=== PATIENT | male | born 1940 | race Caucasian/White ===

== ENCOUNTER 2017-09-17 07:22 | Day surgery (SDC) | payer MEDICARE ==
[~2017-09-17] VITALS: Ht 172.7 cm; Wt 72.4 kg
[~2017-09-17 07:22] MED LIST: HEPARIN 1,000 UNITS/ML, 10ML ONE
[2017-09-17 08:16] VITALS: BP 203/106
[2017-09-17] MEDS ORDERED: SODIUM CHLORIDE 0.9% 1,000 ML IV SCH (08:34)
[2017-09-17 08:50] LABS: BASOPHILS # (AUTO) 0.06 x10^3/uL (0-0.1); BASOPHILS % (AUTO) 1 % (0-1); EOSINOPHILS # (AUTO) 0.29 x10^3/uL (0-0.4); EOSINOPHILS % (AUTO) 3 % (1-7); LYMPHOCYTES % (AUTO) 19 % (22-44); MD NO; MEAN CORPUSCULAR HEMOGLOBIN 27.8 pg (27.5-34.5); MEAN CORPUSCULAR HGB CONC 32.5 g/dL (33.2-36.2); MEAN CORPUSCULAR VOLUME 85.7 fL (81-97); MEAN PLATELET VOLUME 8.3 fL (7.4-10.4); MONOCYTES % (AUTO) 10 % (2-9); NEUTROPHILS # (AUTO) 5.81 x10^3/uL (1.8-6.8); NEUTROPHILS % (AUTO) 66 % (42-75); PLATELET COUNT 237 x10^3/uL (130-400); RED BLOOD COUNT 4.71 x10^6/uL (4.38-5.82); RED CELL DISTRIBUTION WIDTH 19.6 % (9.4-14.8)
[2017-09-17 08:56] LABS: INTERNATIONAL NORMALIZED RATIO 1.05 (0.93-1.1); PROTHROMBIN TIME 10.8 Seconds (9.6-11.5)
[2017-09-17] MEDS ORDERED: PLEASE ENTER ALLERGIES MC SCH (09:00)
[2017-09-17 09:58] LABS: ALANINE AMINOTRANSFERASE 12 U/L (12-78); ALBUMIN 2.7 g/dL (3.4-5.0); ANION GAP 7 mmol/L (5-15); CALCIUM 8.1 mg/dL (8.5-10.1); CHLORIDE 106 mmol/L (98-107); CREATININE 2.35 mg/dL (0.7-1.3)
[2017-09-17] MEDS ORDERED: FENTANYL PF 100 MCG/2ML ONE (09:58)
[2017-09-17 10:00] LABS: ALKALINE PHOSPHATASE 93 U/L (45-117); BILIRUBIN,TOTAL 0.6 mg/dL (0.2-1.0); TOTAL PROTEIN 6.7 g/dL (6.4-8.2)
[2017-09-17] MEDS ORDERED: AMLO10TA2 PO (10:34)
[2017-09-17] MEDS ORDERED: ALBU18HF INH (10:34)
[2017-09-17] MEDS ORDERED: POTA20TA89 PO (10:34)
[2017-09-17] MEDS ORDERED: INSULIN ASPART SQ-VACC (10:34)
[2017-09-17] MEDS ORDERED: ASPI-621 PO (10:34)
[2017-09-17] MEDS ORDERED: FOLI1TAB39 PO (10:34)
[2017-09-17] MEDS ORDERED: DILT120T3 PO (10:34)
[2017-09-17] MEDS ORDERED: TRIA1CAP3 PO (10:34)
[2017-09-17] MEDS ORDERED: LORA0.5T PO (10:34)
[2017-09-17] MEDS ORDERED: PANT40TA5 PO (10:34)
[2017-09-17] MEDS ORDERED: GABA300C10 PO (10:34)
[2017-09-17] MEDS ORDERED: CALC667C PO (10:34)
[2017-09-17] MEDS ORDERED: LEVO75TA5 PO (10:34)
[2017-09-17] MEDS ORDERED: METO2.5T PO (10:34)
[2017-09-17] MEDS ORDERED: FURO80TA3 PO (10:34)
[2017-09-17] MEDS ORDERED: TRAM50TA2 PO (10:34)
[2017-09-17] MEDS ORDERED: FERR325T5 PO (10:34)
[2017-09-17] MEDS ORDERED: METO25TA35 PO (10:34)
[2017-09-17] MEDS ORDERED: ERGO500017 PO (10:34)
[2017-09-17] MEDS ORDERED: INSU100V8 SQ (10:34)
[2017-09-17] MEDS ORDERED: PHENYLEPHRINE 10 MG/ML ONE (10:54)
[2017-09-17] MEDS ORDERED: DEXAMETHASONE 4 MG/ML, 1ML ONE (11:15)
[2017-09-17] MEDS ORDERED: PROPOFOL 10 MG/ML, 20ML ONE (11:15)
[2017-09-17] MEDS ORDERED: CEFAZOLIN 1,000 MG ONE (11:15)
[2017-09-17] MEDS ORDERED: ONDANSETRON 2MG/ML, 2ML ONE (11:15)
[2017-09-17] MEDS ORDERED: hydrALAzine 20 MG/ML, 1ML IV PRN (11:30)
[2017-09-17] MEDS ORDERED: ONDANSETRON ODT 8 MG PO PRN (11:30)
[2017-09-17] MEDS ORDERED: FENTANYL PF 100 MCG/2ML IV PRN (11:30)
[2017-09-17] MEDS ORDERED: HYDROcodone/APAP 7.5-325MG/15ML UDC PO PRN (11:30)
[2017-09-17] MEDS ORDERED: OXYcodone 5 MG/5 ML ORAL.SOL UDC PO PRN (11:30)
[2017-09-17] MEDS ORDERED: ACETAMINOPHEN 325 MG TABLET PO PRN (11:30)
[2017-09-17] MEDS ORDERED: LABETALOL 5MG/ML, 20ML IV PRN (11:30)
[2017-09-17] MEDS ORDERED: OXYcodone 5 MG/5 ML ORAL.SOL UDC ONE (12:10)
[2017-09-17] MEDS ORDERED: ACETAMINOPHEN 650 MG/20.3 ML UDC ONE (12:10)
== END 2017-09-17 14:50 ==
LOC: OUT 07:22
PROVIDERS: ATTEND Surgery Vascular Surgery
DX: E11.22 Type 2 diabetes mellitus with diabetic chronic kidney disease (principal); I12.0 Hypertensive chronic kidney disease with stage 5 chronic kidney disease or end stage renal disease; N18.6 End stage renal disease
CPT/HCPCS: 36415; 36821; 80047; 80053; 82962; 85025; 85610; 93005; J0690; J1100; J1644; J2370; J2405; J2704; J3010; J7030